=== PATIENT | female | born 1995 | race Caucasian/White ===

== ENCOUNTER → 2018-08-29 | Outpatient (CLI) | payer SELFPAY ==
[2018-09-01 03:39] LABS: CHLAMYDIA TRACHOMATIS, NAA Negative (Negative); NEISSERIA GONORRHOEAE, NAA Negative (Negative)
== END | disposition home or self-care (01) ==
LOC: LAB 18:42 → LAB SHORT 18:42
PROVIDERS: Obstetrics & Gynecology
DX: Z01.419 Encounter for gynecological examination (general) (routine) without abnormal findings (principal); Z11.3 Encounter for screening for infections with a predominantly sexual mode of transmission
CPT/HCPCS: 87491; 87591; 87624; 87625; G0123

== ENCOUNTER 2020-12-13 09:34 | Emergency (ER) | payer OTHER ==
[~2020-12-13] VITALS: Ht 152.4 cm; Wt 49.9 kg
[2020-12-13 10:45] LABS: BASOPHILS ABSOLUTE AUTO 0.04 K/mm3 (0.00-0.23); BASOPHILS PERCENT AUTO 0 % (0-2); EOSINOPHILS ABSOLUTE AUTO 0.22 K/mm3 (0.00-0.68); EOSINOPHILS PERCENT AUTO 2 % (0-6); Hemoglobin 13.1 g/dL (11.5-16.0); Mean Corpuscular HGB 31.4 pg (26.0-34.0); Mean Corpuscular HGB Conc 33.6 g/dL (31.5-36.5); Mean Corpuscular Volume 94 fL (80-100); Mean Platelet Volume 9.7 fL (9.1-12.4); Platelet Count 286 K/mm3 (150-400); RDW Coefficient Variation 12.8 % (11.7-14.2); RDW Standard Deviation 44.2 fL (35.1-46.3); Red Blood Cell Count 4.17 M/mm3 (3.80-5.20); White Blood Cell Count 11.16 K/mm3 (4.00-11.30)
[2020-12-13 10:51] LABS: IMMATURE GRAN ABSOLUTE AUTO 0.05 K/mm3 (0.00-0.10); IMMATURE GRAN PERCENT AUTO 0 % (0-1); LYMPHOCYTES ABSOLUTE AUTO 3.29 K/mm3 (0.84-5.20); LYMPHOCYTES PERCENT AUTO 30 % (21-46); MONOCYTES ABSOLUTE AUTO 0.47 K/mm3 (0.16-1.47); MONOCYTES PERCENT AUTO 4 % (4-13); NEUTROPHILS ABSOLUTE AUTO 7.09 K/mm3 (1.96-9.15); NEUTROPHILS PERCENT AUTO 64 % (41-73)
[2020-12-13 11:05] LABS: Alanine Aminotransfer (ALT/SGP 13 U/L (12-78); Albumin, Blood 3.3 g/dL (3.4-5.0); Albumin/Globulin Ratio 0.8 (0.8-1.8); Alk Phos 99 U/L (50-136); Anion Gap 4 mmol/L (6-16); Aspartate Aminotrans (AST/SGOT 8 U/L (12-37); Bilirubin, Total 0.4 mg/dL (0.1-1.0); Blood Urea Nitrogen 9 mg/dL (8-24); Bun/Creatinine Ratio 12.2 (12.0-20.0); CO2, Blood 29 mmol/L (21-32); Calcium, Blood 8.6 mg/dL (8.5-10.1); Chloride, Blood 108 mmol/L (98-108); Creatinine, Blood 0.74 mg/dL (0.40-1.00); Globulin, Blood 4.3 g/dL (2.2-4.0); Glomerular Filtration Rate >60 (60-); Glucose, Blood 132 mg/dL (70-99); Potassium, Blood 3.4 mmol/L (3.5-5.5); Sodium, Blood 141 mmol/L (136-145); Total Protein, Blood 7.6 g/dL (6.4-8.2)
[2020-12-13 12:14] LABS: Source, Urine Clean Catch
[2020-12-13 12:38] LABS: Appearance, Urine Cloudy (Clear); Bilirubin, Urine Neg (Neg); Blood, Urine 1+ (Neg); Color, Urine Yellow (P-Yellow); Glucose Qualitative, Urine Neg (Neg); Ketones, Urine 4+ (Neg); Leukocyte Esterase, Urine 1+ (Neg); Nitrite, Urine Neg (Neg); Protein, Urine 2+ (Neg); Urobilinogen, Urine NORM (Normal)
[2020-12-13 13:01] LABS: Bacteria Many /hpf; Mucus Light (0-Heavy); Squamous Epithelial Cells Mod /hpf (Few)
[2020-12-13 13:02] LABS: Amorphous Light (0-Heavy)
[2020-12-14] MEDS ORDERED: HYDR1TAB94 PO (08:53)
== END 2020-12-13 12:00 | disposition left against medical advice (07) ==
LOC: ER 09:34
PROVIDERS: Emergency Medicine
DX: K35.80 Unspecified acute appendicitis (principal); F17.200 Nicotine dependence, unspecified, uncomplicated
CPT/HCPCS: 36415; 76857; 80053; 81001; 81025; 83690; 85025; 87086; 96374; 96375; 99284-25; J0295; J1170; J1885; J2405; J7030

== ENCOUNTER 2020-12-13 13:46 | Observation (INO) | payer OTHER ==
[~2020-12-13] VITALS: Ht 152.4 cm; Wt 50.0 kg
--- NOTE | 2020-12-13 15:10 | NUR ---
Patient up to Ambulate independently. Gait steady. Surgical site prepped with 2% Chlorhexidine cloth wipe. History, Chart, Medications and Allergies reviewed before start of procedure.Lungs clear T/O to Auscultation. Patient confirms NPO status and agrees with scheduled surgery. ALL BELONINGS PLACED UNDER THE BED IN TWO BAGS. PT NOT , PAS ON.
[2020-12-13 15:27] LABS: SARS-Cov-2 (COVID-19) PCR, MMC NEGATIVE (NEGATIVE)
--- NOTE | 2020-12-13 17:55 | NUR ---
PT ARRIVED TO UNIT FROM PACU AT APPROX 1730. ABLE TO TRANSFER SELF TO BED WITH SBA. DENIES PAIN AND NAUSEA AT THIS TIME. AA0X4. TOLERATING WATER AND JELLO CURRENTLY. DRESSING CDI. SCD'S IN PLACE. CALL LIGHT IN REACH EDUCATED ON USE. CURRENTLY SITTING UP IN BED TALKING ON HER PHONE.
--- NOTE | 2020-12-13 19:20 | NUR ---
RECEIVED REPORT AND ASSUMED CARE OF PT. SHE IS SITTING UP IN BED EATING, ONOFRE PO INTAKE WELL. REPORTS PAIN "IRRITATING" BUT TOLERABLE. SHE DENIES ANY OTHER NEEDS AT THIS TIME. WCTM.
--- NOTE | 2020-12-14 04:13 | NUR ---
SHIFT SUMMARY: MARGO IS A&OX4. VSS, NO ACUTE EVENTS OVERNIGHT. SHE IS TOLERATING PO INTAKE WELL, REPORTS ADEQUATE PAIN CONTROL WITH ONE TABLET OF NORCO. LAP SITES X 3 C/D&I. SHE IS INDEPENDENT IN THE ROOM, BREAST PUMP PROCURED FROM FAMILY , URINATING WITHOUT DIFFICULTY, AND REPORTS PASSING GAS. SHE IS LYING IN BED WITH THE CALL LIGHT IN REACH. WILL REPORT TO DAY SHIFT RN.
[2020-12-14] MEDS ORDERED: HYDR1TAB94 PO (08:53)
--- NOTE | 2020-12-14 10:54 | NUR ---
DISCHARGE SUMMARY PT A&OX4, VSS, LEFT FLOOR VIA WC WITH NURSING STAFFING COORDINATOR TO GO HOME WITH , WITH ALL PERSONAL POSSESSIONS INCLUDING DC PACKET, 1 WORK NOTE, AND 1 NARCOTIC SCRIPT. DC INSTRUCTIONS PROVIDED. PT REP UNDERSTANDING THOSE INSTRUCTIONS INCLUDING LEAVE STERI STRIPS ON UNTIL THEY COME OFF ON THEIR OWN, FU WITH SURGEON 2 WKS, NO LIFTING >10 POUNDS, OK TO SHOWER. IV DC'D.
== END 2020-12-14 10:42 | disposition home or self-care (01) ==
LOC: ER 13:46 → SURS 13:47
PROVIDERS: Emergency Medicine; ADMIT Surgery
PROC: 0DTJ4ZZ Resection of Appendix, Percutaneous Endoscopic Approach (ICD-10-PCS; principal; 2020-12-13 15:00)
DX: I88.0 Nonspecific mesenteric lymphadenitis (principal); F17.200 Nicotine dependence, unspecified, uncomplicated; Z20.822 Contact with and (suspected) exposure to COVID-19
CPT/HCPCS: 88304; 96374; 99284-25; A9270; G0378; J0295; J1100; J1885; J2250; J2405; J2704; J3010; J7120; U0004

== ENCOUNTER 2021-03-06 13:04 | Emergency (ER) | payer OTHER ==
[~2021-03-06] VITALS: Ht 165.1 cm; Wt 49.9 kg
[~2021-03-06 13:04] MED LIST: HYDR1TAB94 PO
== END 2021-03-06 14:14 | disposition home or self-care (01) ==
LOC: ER 13:04
DX: U07.1 COVID-19 (principal); F17.210 Nicotine dependence, cigarettes, uncomplicated
CPT/HCPCS: 99282